=== PATIENT | male | born 2000 | race African-American/Black ===

== ENCOUNTER 2023-12-15 23:12 | Emergency (ER) | payer BC ==
[~2023-12-15] VITALS: Ht 172.7 cm; Wt 81.6 kg
[2023-12-15] MEDS: IV NORMAL SALINE 1000 ML BAG IV ONE (23:50)
[2023-12-15 23:59] LABS: BASOPHILS # (AUTO) 0.2 K/UL (0.0-0.2); EOSINOPHILS # (AUTO) 0.1 K/uL (0.0-0.7); EOSINOPHILS % (AUTO) 2.2 % (0.0-7.0); HEMATOCRIT 40.8 % (36.7-47.1); HEMOGLOBIN 13.9 g/dL (12.5-16.3); LYMPHOCYTES % (AUTO) 44.7 % (20.5-51.5); MEAN CORPUSCULAR HEMOGLOBIN 28.6 uug (23.8-33.4); MEAN CORPUSCULAR HGB CONC 34 g/dL (32.5-36.3); MEAN CORPUSCULAR VOLUME 83.9 fL (73.0-96.2); MONOCYTES # (AUTO) 0.4 K/uL (0.1-1.30); MONOCYTES % (AUTO) 6.4 % (0.0-11.0); NEUTROPHILS % (AUTO) 43.7 % (38.5-71.5); PLATELET COUNT (AUTO) 224 K/uL (152-348); RED BLOOD CELL COUNT(AUTO) 4.87 MIL/uL (4.06-5.63); RED CELL DISTRIBUTION WIDTH 13.4 % (12.1-16.2); WHITE BLOOD COUNT (AUTO) 6.8 K/uL (3.6-10.2)
[2023-12-16 00:08] LABS: *BILIRUBIN,URIN NEGATIVE (NEGATIVE); *BLOOD, URINE NEGATIVE (NEGATIVE); *CLARITY,URINE CLEAR (CLEAR); *COLOR,URINE YELLOW (YELLOW); *KETONES,URINE NEGATIVE (NEGATIVE); *PROTEIN,URINE NEGATIVE (NEGATIVE); *UROBILINOGEN,URINE 0.2 E.U./dl (NORMAL); LEUKOCYTE ESTERASE ,URINE NEGATIVE (NEGATIVE); NITRITE, URINE NEGATIVE (NEGATIVE); PH,URINE 6.5 (5.0-8.0); UGLUCOSE 3+ (NEGATIVE)
[2023-12-16 00:11] LABS: ALANINE AMINOTRANSFERASE 28 U/L (16-63); ALKALINE PHOSPHATASE 198 U/L (50-136); BILIRUBIN,TOTAL 0.4 mg/dL (0.2-1.0); CARBON DIOXIDE 24 mmol/L (21-32); CHLORIDE 92 mmol/L (98-107); CREATININE 1.5 mg/dL (0.6-1.3); LIPASE 65 U/L (16-77); POTASSIUM 4.4 mmol/L (3.5-5.1); SODIUM SERUM 129 mmol/L (136-145); TOTAL PROTEIN, SERUM 8.2 g/dL (6.4-8.2); UREA NITROGEN, BLOOD 27 mg/dL (7-18)
[2023-12-16 00:14] LABS: GLUCOSE 643 mg/dL (74-106)
[2023-12-16 00:25] LABS: DIFFERENTIAL COMMENT 1
[2023-12-16 00:27] LABS: ACETONE, SERUM NEGATIVE (NEGATIVE)
[2023-12-16 00:41] LABS: ASPARTATE AMINOTRANSFERASE 5 U/L (15-37)
[2023-12-16] MEDS ORDERED: POTASSIUM CHLORIDE 20 MEQ TAB.PRT.SR ONE (00:51)
[2023-12-16] MEDS ORDERED: INSULIN REGULAR, HUMAN 300 UNIT/3 ML VIAL ONE (00:52)
[2023-12-16] MEDS: POTASSIUM CHLORIDE 20 MEQ TAB.PRT.SR PO ONE (00:53)
[2023-12-16] MEDS: INSULIN REGULAR, HUMAN 300 UNIT/3 ML VIAL IV ONE (00:54)
[2023-12-16] MEDS ORDERED: CLON0.1T PO (01:08)
[2023-12-16] MEDS ORDERED: GABA600T12 PO (01:08)
[2023-12-16] MEDS ORDERED: HYDR50TA62 PO (01:08)
[2023-12-16] MEDS ORDERED: LORA0.5T48 PO (01:08)
[2023-12-16] MEDS ORDERED: QUET100T PO (01:08)
[2023-12-16] MEDS ORDERED: METH-807 PO (01:08)
[2023-12-16] MEDS ORDERED: ONDA8TAB13 PO (01:08)
[2023-12-16] MEDS ORDERED: METF-440 PO (01:43)
[2023-12-16] MEDS: IV NORMAL SALINE 1000 ML BAG IV ONE (01:50)
[2023-12-16 02:12] VITALS: BP 148/96; O2SAT 97
[2023-12-16] MEDS: METFORMIN HCL 500 MG TABLET PO ONE (02:32)
== END 2023-12-16 01:50 | disposition left against medical advice (07) ==
LOC: ER 23:18
DX: E10.65 Type 1 diabetes mellitus with hyperglycemia (principal); F17.200 Nicotine dependence, unspecified, uncomplicated; Z79.899 Other long term (current) drug therapy; Z91.010 Allergy to peanuts
CPT/HCPCS: 99283; 96361; 80053; 81003; 82009; 82962; 83690; 85025; 36415; 96374; J1815; J7040; A4606; A4663